=== PATIENT | male | born 1990 | race American Indian/Alaskan Native ===

== ENCOUNTER 2021-12-22 07:32 | Emergency (ER) | payer SELFPAY ==
[2021-12-22] MEDS ORDERED: ONDANSETRON 4 MG/2 ML INJ IV ONE (09:26)
[2021-12-22] MEDS ORDERED: FAMOTIDINE 20 MG/2 ML INJ IV ONE (09:26)
[2021-12-22] MEDS ORDERED: SODIUM CHLORIDE 0.9% 1000 ML 1,000 ML IV ONE (09:26)
--- NOTE | 2021-12-22 09:35 | Emergency Department Report ---
ED Abdominal Pain HPI - General Chief Complaint: Abdominal Pain Stated Complaint: ABD PAIN PUI?: No Time Seen by Provider: 12/22/21 09:20 Source: patient Mode of arrival: Ambulatory Limitations: No Limitations - History of Present Illness Initial Comments: 31yo M w/unknown PMhx brought in for evaluation of abdominal pain. The pt states he was seen one month ago at "one of those [facility]," per his verbal report, for the same symptoms. When asked to clarify which facility, the pt states "I don't know." He reports nausea, denies vfc. he c/o sharp, mid abdominal pain that is constant x 12 hours, nonradiating. He does not know his last bowel movement. He denies any melena, hematochezia, or hematemesis. No hx of surgeries to his abdomen. Pain currently "an eleven right now!" per pt's report. Pt denies tobacco or alcohol usage. He last used marijuana one month ago. MD Complaint: abdominal pain -: hour(s) (12) Location: diffuse Radiation: none Migration to: no migration Severity: severe Severity scale (0 -10): 10 Quality: cramping, stabbing Consistency: constant Improves With: nothing Worsens With: nothing Context: other (pt denies) - Related Data Previous Rx's Medication Instructions Recorded Last Taken Type Ondansetron [Zofran Odt] 4 mg PO Q8HR #12 tab.rapdis 12/22/21 Unknown Rx Allergies Allergy/AdvReac Type Severity Reaction Status Date / Time No Known Allergies Allergy Verified 12/22/21 08:24 ED Review of Systems ROS: Stated complaint: ABD PAIN Other details as noted in HPI Comment: All other systems reviewed and negative Constitutional: no symptoms reported. denies: chills, diaphoresis, fever, malaise Eyes: denies: eye discharge, vision change ENT: denies: ear pain, throat pain, hearing loss, epistaxis Respiratory: denies: cough, orthopnea, SOB with exertion, SOB at rest, stridor Cardiovascular: denies: chest pain, palpitations, dyspnea on exertion, orthopnea, edema, syncope, paroxysmal nocturnal dyspnea Endocrine: denies: excessive sweating, flushing, intolerance to cold, intoler ance to heat, increased hunger, increased thirst, increased urine, unexplained weight gain, unexplained weight loss Gastrointestinal: abdominal pain, nausea. denies: vomiting, diarrhea, constipation, hematemesis, melena, hematochezia Genitourinary: denies: urgency, dysuria, frequency, hematuria, discharge, testicular pain, testicular mass Musculoskeletal: denies: back pain, joint swelling, arthralgia, myalgia Skin: denies: rash, lesions, change in color, change in hair/nails, pruritus Neurological: denies: headache, weakness, paresthesias, confusion, vertigo, other Psychiatric: denies: anxiety, depression, visual hallucinations, homicidal th oughts, other Hematological/Lymphatic: denies: easy bleeding, easy bruising, swollen glands ED Past Medical Hx - Past Medical History Previous Medical History?: Yes Additional medical history: gastriris - Surgical History Past Surgical History?: No - Family History Family history: no significant - Social History Smoking Status: Current Every Day Smoker Substance Use Type: Marijuana - Medications Home Medications: Home Medications Medication Instructions Recorded Confirmed Last Taken Type Ondansetron [Zofran Odt] 4 mg PO Q8HR #12 tab.rapdis 12/22/21 Unknown Rx ED Physical Exam - General Limitations: No Limitations General appearance: alert, in distress - Head Head exam: Present: atraumatic, normocephalic, normal inspection - Eye Eye exam: Present: normal appearance, PERRL, EOMI. Absent: scleral icterus, co njunctival injection, nystagmus, periorbital swelling, periorbital tenderness Pupils: Present: normal accommodation. Absent: irregular, unequal, miosis, mydriatic - ENT ENT exam: Present: normal exam, normal orophraynx, mucous membranes moist, normal external ear exam - Neck Neck exam: Present: normal inspection, full ROM. Absent: tenderness, meningismus, lymphadenopathy, thyromegaly - Respiratory Respiratory exam: Present: normal lung sounds bilaterally. Absent: respiratory distress, wheezes, rales, rhonchi, stridor, chest wall tenderness, accessory muscle use, decreased breath sounds, prolonged expiratory - Cardiovascular Cardiovascular Exam: Present: regular rate, normal rhythm, normal heart sounds. Absent: bradycardia, tachycardia, irregular rhythm, systolic murmur, diastolic murmur, rubs, gallop, clicks, JVD, S3, S4, other - GI/Abdominal GI/Abdominal exam: Present: soft, normal bowel sounds, other (abdomen is nontender to palpation). Absent: distended, tenderness, guarding, rebound, rigid, diminished bowel sounds, hyperactive bowel sounds, hypoactive bowel sounds, organomegaly, mass, bruit, pulsatile mass, hernia - Extremities Exam Extremities exam: Present: normal inspection, full ROM, normal capillary refill. Absent: tenderness, pedal edema, joint swelling, other - Back Exam Back exam: Present: normal inspection, full ROM. Absent: tenderness, CVA tenderness (R), CVA tenderness (L), muscle spasm, paraspinal tenderness, vertebral tenderness, rash noted - Neurological Exam Neurological exam: Present: alert, oriented X3, CN II-XII intact, motor sensory deficit - Psychiatric Psychiatric exam: Present: normal affect - Skin Skin exam: Present: warm, dry, intact, normal color. Absent: rash, cyanosis, diaphoretic, erythema, urticaria, vesicles, petechiae, pallor, abrasion, ecchymosis, other ED Course Vital Signs 12/22/21 12/22/21 12/22/21 08:24 08:56 09:01 Temperature 98 F Pulse Rate 60 Respiratory 16 Rate Blood Pressure 168/101 Blood Pressure 196/103 [Left] O2 Sat by Pulse 100 100 99 Oximetry 12/22/21 12/22/21 12/22/21 09:15 09:23 09:31 Temperature Pulse Rate Respiratory 20 Rate Blood Pressure 168/101 150/92 Blood Pressure [Left] O2 Sat by Pulse 100 99 95 Oximetry 12/22/21 09:45 Temperature Pulse Rate Respiratory Rate Blood Pressure 150/92 Blood Pressure [Left] O2 Sat by Pulse 99 Oximetry - Reevaluation(s) Reevaluation #1: 12/22/21 09:22 pt observed to be lying still, in prone position (on his abdomen), comfortable appearing, nad; when approached by this provider, the pt turns supine on his stretcher, begins screaming out, thrashing on stretcher, staying "i'm in so much pain! I have gastritis!!" 12/22/21 09:31 12/22/21 14:12 pt is comfortable and well appearing; nad; denies any active abdominal pain; Reevaluation #2: 12/22/21 09:31 pt observed to be lying in right lateral decubitus position; he is comfortable appearing at this time; pt approached by this provider and at this time was observed to begin thrashing his extremities on the stretcher, c/o abdominal pain, again stating "I have gastritis!!! I'm having gastritis!!" Reevaluation #3: 12/22/21 14:12 pt is asleep, well appearing, NAD; denies any abdominal pain; ED Medical Decision Making - Lab Data Result diagrams: 12/22/21 09:05 12/22/21 13:23 - Medical Decision Making 31yo M w/no significant PMhx p/w c/o abdominal pain. Vital signs stable. Physical examination concerning abdominal tenderness or any focal findings is unremarkable. Labs reviewed. Patient given Zofran Pepcid Toradol and subsequently reexamined. CT scan abdomen pelvis are grossly unremarkable. Patient's pain resolved. Repeat basic metabolic panel demonstrates improving bicarbonate and resolution of elevated anion gap metabolic acidosis. No further emergent work-up warranted at this time. Patient stable for discharge to home Critical care attestation.: If time is entered above; I have spent that time in minutes in the direct care of this critically ill patient, excluding procedure time. ED Disposition Clinical Impression: Abdominal pain Disposition: 01 HOME / SELF CARE / HOMELESS Is pt being admited?: No Does the pt Need Aspirin: No Condition: Stable Instructions: Abdominal Pain, Adult, [id number] Additional Instructions: The cause of your symptoms are unclear. Your blood work that was repeated as well as your CAT scan are unremarkable. Be sure to drink plenty of fluids at home. Take Zofran as needed for pain. You may take Maalox which can be purchased [id number], for additional pain management. Follow-up with a primary care doctor for reassessment and further assessment. T his is very important. Return to the nearest emergency department soon as possible if you develop s evere or worsening pain, vomiting, inability tolerate liquids or solids, any fever 100.4 Fahrenheit or higher, or if any other new worrisome symptoms develop Prescriptions: Ondansetron [Zofran Odt] 4 mg PO Q8HR #12 tab.rapdis Referrals: PRIMARY MD VAUGHN [Primary Care Provider] - 3-5 Days DARON GUPTA MD [Staff Physician] - 3-5 Days
[2021-12-22] MEDS ORDERED: KETOROLAC 30 MG/1 ML INJ IV ONE (09:51)
[2021-12-22 10:07] LABS: Hematocrit 37.4 % (35.5-45.6); Hemoglobin 12.5 gm/dl (11.8-15.2); Mean Corpuscular HGB Conc 34 % (32-34); Mean Corpuscular Volume 94 fl (84-94); Platelet Count 199 K/mm3 (140-440); Red Blood Count 3.99 M/mm3 (3.65-5.03); Red Cell Distribution Width 13.7 % (13.2-15.2)
[2021-12-22 10:24] LABS: Alanine Aminotransferase 18 units/L (7-56); BUN/Creatinine Ratio 13; Blood Urea Nitrogen 17 mg/dL (9-20); Hemolysis Index 183
--- NOTE | 2021-12-22 10:29 | Cat Scan Report ---
CT ABDOMEN AND PELVIS WITHOUT CONTRAST HISTORY: mid abdominal pain, nausea COMPARISON: None TECHNIQUE: Routine abdominal and pelvic CT exam performed without contrast. Lack of intravenous cont rast limits evaluation of the vascular and solid organs.. All CT scans at this location are performed using CT dose reduction for ALARA by means of automated exposure control. FINDINGS: CT ABDOMEN: Lung Bases: No significant abnormality. Liver: No significant abnormality. Biliary: No significant abnormality. Spleen: No significant abnormality. Unenlarged. Pancreas: No significant abnormality. Adrenals: No significant abnormality. Kidneys: There is a 4 cm simple cyst in the right kidney. No acute renal findings. Lymphatics: No lymphadenopathy. Vasculature: No significant abnormality. Bowel/Peritoneum: No significant abnormality. No free air. No free fluid. CT PELVIC: : No significant abnormality. Lymphatics: No lymphadenopathy. Osseous Structures: No aggressive appearing osseous lesions. Additional Findings: None IMPRESSION: 1. No acute findings. Signer Name: Lyndon Bowden MD Signed: 12/22/2021 10:24 AM Workstation Name: [id number]
[2021-12-22 13:55] LABS: BUN/Creatinine Ratio 12; Blood Urea Nitrogen 18 mg/dL (9-20); Calcium 9.4 mg/dL (8.4-10.2); Hemolysis Index 3
[2021-12-22 14:40] VITALS: BP 130/85
== END 2021-12-22 14:40 | disposition home or self-care (01) ==
LOC: ED 07:32
DX: R10.84 Generalized abdominal pain (principal); K29.70 Gastritis, unspecified, without bleeding; F17.290 Nicotine dependence, other tobacco product, uncomplicated
CPT/HCPCS: 36415; 74176; 80048; 80053; 83690; 85027; 96361; 96374; 96375; 99284; J1885; J2405; J3490; J7030